=== PATIENT | male | born 2000 | race Hispanic/Latino ===

== ENCOUNTER → 2021-07-21 05:58 | Emergency (ER) | payer BC ==
[~2021-07-21 05:58] MED LIST: Lidocaine Viscous Sol 2% 15 ml UD Cup ONE; Mag-Al Plus 1200 MG/1200 MG/120 MG/30 ML UDCUP ONE
== END | disposition home or self-care (01) ==
LOC: CSHERS 05:58
DX: R09.89 Other specified symptoms and signs involving the circulatory and respiratory systems (principal)
CPT/HCPCS: 70360